=== PATIENT | male | born 1930 | race Caucasian/White ===

== ENCOUNTER 2016-11-27 19:21 | Inpatient (IN) | payer SELFPAY ==
[~2016-11-27] VITALS: Ht 177.8 cm; Wt 90.7 kg
[2016-11-27] MEDS ORDERED: CEFTRIAXONE 1 G in IV DEXTROSE 5% 50 ML IV ONE (19:45)
[2016-11-27] MEDS ORDERED: ATOR40TA PO (19:48)
[2016-11-27] MEDS ORDERED: METOPROLOL TARTRATE PO (19:51)
[2016-11-27] MEDS ORDERED: AMLO5TAB2 PO (19:51)
[2016-11-27] MEDS ORDERED: SOLI5TAB PO (19:53)
[2016-11-27] MEDS ORDERED: SITA50TA PO (19:53)
[2016-11-27] MEDS ORDERED: QUET25TA PO (19:54)
[2016-11-27] MEDS ORDERED: GLIP5TAB21 PO (19:55)
[2016-11-27 20:03] LABS: BASOPHILS % (AUTO) 0.2 % (0.0-2.0); EOSINOPHILS % (AUTO) 0.1 % (0.0-7.0); HEMATOCRIT 43.5 % (40.0-50.0); HEMOGLOBIN 14.9 g/dL (14.0-18.0); LYMPHOCYTES # (AUTO) 1.2 K/uL (0.8-4.8); LYMPHOCYTES % (AUTO) 6.5 % (20.5-51.5); MEAN CORPUSCULAR HEMOGLOBIN 27.5 uug (27.0-31.0); MEAN CORPUSCULAR HGB CONC 34 g/dL (32.0-37.0); MEAN CORPUSCULAR VOLUME 80.3 fL (82.0-92.0); MONOCYTES # (AUTO) 0.9 K/uL (0.1-1.30); MONOCYTES % (AUTO) 4.7 % (0.0-11.0); NEUTROPHILS # (AUTO) 17.1 K/uL (1.8-8.9); NEUTROPHILS % (AUTO) 88.5 % (38.5-71.5); PLATELET COUNT (AUTO) 153 K/uL (150-450); RED BLOOD CELL COUNT(AUTO) 5.41 MIL/uL (4.70-6.10); RED CELL DISTRIBUTION WIDTH 13.9 % (11.5-14.5); WHITE BLOOD COUNT (AUTO) 19.2 K/uL (4.0-11.2)
[2016-11-27 20:10] LABS: CALCIUM 9.4 mg/dL (8.5-10.1)
[2016-11-27 20:11] LABS: CREATININE 2.6 mg/dL (0.6-1.3)
[2016-11-27 20:18] LABS: TROPONIN I 0.018 ng/mL (0.00-0.056)
[2016-11-27 20:22] LABS: ALBUMIN 3.8 g/dL (3.4-5.0); BILIRUBIN,DIRECT 0.5 mg/dL (0.0-0.2); BILIRUBIN,TOTAL 2.2 mg/dL (0.2-1.0); TOTAL PROTEIN, SERUM 8.5 g/dL (6.4-8.2)
[2016-11-27] MEDS ORDERED: AZITHROMYCIN IV 500 MG in IV DEXTROSE 5% 250 ML IV ONE (20:30)
[2016-11-27 20:31] LABS: BAND % (MANUAL) 6 % (0-10); LYMPHOCYTES % (MANUAL) 8 % (20-40); MONOCYTES % (MANUAL) 5 % (2-10); NEUTROPHILS % (MANUAL) 81 % (42-75)
[2016-11-27 20:33] LABS: PLATELET ESTIMATE ADEQUATE
[2016-11-27 20:47] LABS: *OCCULT BLOOD STOOL NEGATIVE (NEGATIVE)
[2016-11-27 20:52] LABS: LACTIC ACID 1.7 mmol/L (0.4-2.0)
[2016-11-27] MEDS ORDERED: ENOXAPARIN SODIUM 80 MG/0.8 ML DISP.SYRIN SQ ONE ×2 (21:00→21:10)
[2016-11-27] MEDS ORDERED: CEFTRIAXONE 1 G VIAL ONE (21:10)
[2016-11-27] MEDS ORDERED: ASPI81TA31 PO (21:37)
[2016-11-27] MEDS ORDERED: AZITHROMYCIN 500 MG VIAL IV ONE (21:49)
--- NOTE | 2016-11-27 22:04 | NUR ---
PATIENT WENT DOWN FOR A VQ SCAN.
[2016-11-27 22:21] LABS: *BILIRUBIN,URIN NEGATIVE (NEGATIVE); *BLOOD, URINE 2+ (NEGATIVE); *CLARITY,URINE SLIGHTLY CLOUDY (CLEAR); *COLOR,URINE YELLOW (YELLOW); *KETONES,URINE TRACE (NEGATIVE); *PROTEIN,URINE 2+ (NEGATIVE); *UROBILINOGEN,URINE 0.2 E.U./dl (NORMAL); LEUKOCYTE ESTERASE ,URINE 1+ (NEGATIVE); PH,URINE 5.5 (5.0-8.0); UGLUCOSE NEGATIVE (NEGATIVE)
[2016-11-27 22:22] LABS: NITRITE, URINE POSITIVE (NEGATIVE)
[2016-11-27 22:32] LABS: BACTERIA,URINE MODERATE /HPF (NONE SEEN); WBC,URINE 50-80 /HPF (0-3)
[2016-11-27] MEDS ORDERED: DEXTROSE 50% 50 ML DISP.SYRIN IV PRN (22:45)
[2016-11-27] MEDS ORDERED: MORPHINE SULFATE 2 MG/1 ML DISP.SYRIN IV PRN (22:45)
[2016-11-27] MEDS: CEFTRIAXONE 1 G in IV DEXTROSE 5% 50 ML IV SCH (22:45)
[2016-11-27] MEDS ORDERED: ONDANSETRON 4 MG/2 ML VIAL IV PRN (22:45)
[2016-11-27] MEDS ORDERED: ACETAMINOPHEN 325 MG TABLET PO PRN (22:45)
[2016-11-27] MEDS: AZITHROMYCIN IV 250 MG in IV DEXTROSE 5% 250 ML IV SCH (22:45)
--- NOTE | 2016-11-27 22:52 | NUR ---
CALLED TO GIVE REPORT. NURSE WILL CALL BACK SOON.
[2016-11-28 01:20] VITALS: BP 110/56
[2016-11-28] MEDS: IV 1/2NS 1000 ML 1,000 ML IV PRN ×2 (02:13→16:02)
[2016-11-28 05:18] VITALS: BP 129/65
[2016-11-28] MEDS: BLOOD SUGAR DIAGNOSTIC 1 EACH STRIP VI SCH ×4 (06:34→21:18)
--- NOTE | 2016-11-28 07:10 | NUR ---
PATIENT RECEIVED IN ROOM RESTING WITH EYES CLOSED IN NO ACUTE DISTRESS. SR ON PIPE RECOVERY SPECIALIST. RESPIRATIONS EVEN AND UNLABORED. O2 ON 2L/NC. FALL PRECAUTIONS AND DVT PUMPS IN PLACE.
[2016-11-28] MEDS ORDERED: DOCUSATE SODIUM 250 MG CAPSULE PO SCH (07:45)
[2016-11-28] MEDS: INSULIN REGULAR, HUMAN 300 UNIT/3 ML VIAL SQ PRN ×3 (08:22→16:56)
[2016-11-28] MEDS: ASPIRIN 81 MG TAB.CHEW PO SCH (08:25)
[2016-11-28] MEDS: PANTOPRAZOLE SODIUM 40 MG VIAL IV SCH (08:25)
[2016-11-28] MEDS: glipiZIDE 5 MG TABLET PO SCH ×2 (08:25→16:54)
[2016-11-28] MEDS: SOLIFENACIN SUCCINATE 5 MG TABEC PO SCH (08:25)
[2016-11-28] MEDS: METOPROLOL TARTRATE 25 MG TABLET PO SCH ×2 (08:30→21:17)
[2016-11-28] MEDS: AMLODIPINE 5 MG TABLET PO SCH (08:30)
[2016-11-28] MEDS: SITAGLIPTIN PHOSPHATE 50 MG TABLET PO SCH (08:41)
[2016-11-28] MEDS ORDERED: METOPROLOL TARTRATE PO SCH (09:00)
[2016-11-28 09:17] LABS: ALBUMIN 3.2 g/dL (3.4-5.0); BILIRUBIN,TOTAL 1.8 mg/dL (0.2-1.0); MAGNESIUM 1.5 mg/dL (1.8-2.4); PHOSPHOROUS 2.9 mg/dL (2.5-4.9); POTASSIUM 3.5 mmol/L (3.5-5.1); TOTAL PROTEIN, SERUM 7.5 g/dL (6.4-8.2)
[2016-11-28 09:18] LABS: CREATININE 2.5 mg/dL (0.6-1.3)
[2016-11-28 09:36] LABS: THYROID STIMULATING HORMONE 1.497 mIU/mL (0.358-3.740)
[2016-11-28 09:55] LABS: BASOPHILS % (AUTO) 0.1 % (0.0-2.0); EOSINOPHILS # (AUTO) 0.1 K/uL (0.0-0.7); EOSINOPHILS % (AUTO) 0.6 % (0.0-7.0); HEMATOCRIT 39.6 % (40.0-50.0); HEMOGLOBIN 13.2 g/dL (14.0-18.0); LYMPHOCYTES # (AUTO) 1.5 K/uL (0.8-4.8); MEAN CORPUSCULAR HEMOGLOBIN 26.6 uug (27.0-31.0); MEAN CORPUSCULAR HGB CONC 33 g/dL (32.0-37.0); MEAN CORPUSCULAR VOLUME 80.1 fL (82.0-92.0); MONOCYTES # (AUTO) 1.1 K/uL (0.1-1.30); NEUTROPHILS # (AUTO) 12.4 K/uL (1.8-8.9); NEUTROPHILS % (AUTO) 82.3 % (38.5-71.5); PLATELET COUNT (AUTO) 118 K/uL (150-450); RED BLOOD CELL COUNT(AUTO) 4.95 MIL/uL (4.70-6.10); WHITE BLOOD COUNT (AUTO) 15.1 K/uL (4.0-11.2)
--- NOTE | 2016-11-28 10:50 | NUR ---
PATIENT PARTICIPATED WITH PT AND TOLERATED WELL.
[2016-11-28 11:24] LABS: BAND % (MANUAL) 7 % (0-10); LYMPHOCYTES % (MANUAL) 10 % (20-40); MONOCYTES % (MANUAL) 6 % (2-10); NEUTROPHILS % (MANUAL) 77 % (42-75); PLATELET ESTIMATE SLIGHT DECREASED
[2016-11-28 11:44] VITALS: BP 119/61
[2016-11-28 15:26] VITALS: BP 114/57
--- NOTE | 2016-11-28 18:40 | NUR ---
END OF SHIFT NOTE: PATIENT ALERT AND ORIENTED WNL. NO S/S OF DISTRESS OBSERVED. VSS. DENIED PAIN. NO C/O CHEST PAIN. SR ON OUTSIDE SALES MANAGER. RESPIRATIONS EVEN AND UNLABORED. IVF RUNNING. UP ON CHAIR FOR DINNER AND TOLERATED WELL. TURNED AND REPOSITIONED EVERY 2 HOURS AND PRN. HEELS ELEVATED ON PILLOWS. DVT PUMPS AND FALL PRECAUTIONS IN PLACE.
[2016-11-28 20:26] VITALS: BP 123/53
[2016-11-28] MEDS: DOCUSATE SODIUM 250 MG CAPSULE PO SCH (21:17)
[2016-11-28] MEDS: ATORVASTATIN 40 MG TABLET PO SCH (21:17)
[2016-11-28] MEDS: LACTOBACILLUS RHAMNOSUS GG 1 EACH CAPSULE PO SCH (21:17)
[2016-11-28] MEDS: CEFTRIAXONE 1 G in IV DEXTROSE 5% 50 ML IV SCH (22:39)
[2016-11-28] MEDS: AZITHROMYCIN IV 250 MG in IV DEXTROSE 5% 250 ML IV SCH (23:24)
[2016-11-29 00:22] VITALS: BP 122/67
[2016-11-29 04:36] VITALS: BP 121/68
[2016-11-29] MEDS: IV 1/2NS 1000 ML 1,000 ML IV PRN (06:18)
--- NOTE | 2016-11-29 07:33 | NUR ---
PATIENT RECEIVED IN ROOM RESTING IN BED, EASILY AWAKEN IN NO ACUTE DISTRESS. RESPIRATIONS EVEN AND UNLABORED. 02 ON 2L/NC. NO COUGH NOTED. IVF RUNNING. IV SITE INTACT AND PATENT. DVT PUMPS AND FALL PRECAUTIONS IN PLACE.
[2016-11-29] MEDS: BLOOD SUGAR DIAGNOSTIC 1 EACH STRIP VI SCH ×4 (08:08→20:24)
[2016-11-29] MEDS: glipiZIDE 5 MG TABLET PO SCH ×2 (08:11→17:24)
[2016-11-29] MEDS: INSULIN REGULAR, HUMAN 300 UNIT/3 ML VIAL SQ PRN ×4 (08:12→20:26)
[2016-11-29] MEDS: SOLIFENACIN SUCCINATE 5 MG TABEC PO SCH (08:14)
[2016-11-29] MEDS: PANTOPRAZOLE SODIUM 40 MG VIAL IV SCH (08:14)
[2016-11-29] MEDS: ASPIRIN 81 MG TAB.CHEW PO SCH (08:14)
[2016-11-29] MEDS: LACTOBACILLUS RHAMNOSUS GG 1 EACH CAPSULE PO SCH ×2 (08:15→20:23)
[2016-11-29] MEDS: SITAGLIPTIN PHOSPHATE 50 MG TABLET PO SCH (08:15)
[2016-11-29] MEDS: AMLODIPINE 5 MG TABLET PO SCH (08:20)
[2016-11-29] MEDS: METOPROLOL TARTRATE 25 MG TABLET PO SCH ×2 (08:21→20:24)
[2016-11-29 11:37] LABS: CALCIUM 8.4 mg/dL (8.5-10.1); POTASSIUM 3.6 mmol/L (3.5-5.1)
[2016-11-29 11:40] LABS: CREATININE 2.4 mg/dL (0.6-1.3)
[2016-11-29 11:52] VITALS: BP 110/67
[2016-11-29 11:57] LABS: HEMOGLOBIN 12.6 g/dL (14.0-18.0); LYMPHOCYTES % (AUTO) 11.3 % (20.5-51.5); MEAN CORPUSCULAR HEMOGLOBIN 26.4 uug (27.0-31.0); MEAN CORPUSCULAR HGB CONC 32 g/dL (32.0-37.0); MEAN CORPUSCULAR VOLUME 81.6 fL (82.0-92.0); MONOCYTES % (AUTO) 8.3 % (0.0-11.0); NEUTROPHILS % (AUTO) 79.4 % (38.5-71.5); RED BLOOD CELL COUNT(AUTO) 4.78 MIL/uL (4.70-6.10); RED CELL DISTRIBUTION WIDTH 14.9 % (11.5-14.5)
[2016-11-29 11:58] LABS: EOSINOPHILS # (AUTO) 0.1 K/uL (0.0-0.7); LYMPHOCYTES # (AUTO) 0.8 K/uL (0.8-4.8); MONOCYTES # (AUTO) 0.6 K/uL (0.1-1.30); NEUTROPHILS # (AUTO) 5.6 K/uL (1.8-8.9)
[2016-11-29 12:53] LABS: PLATELET COUNT (AUTO) 142 K/uL (150-450)
[2016-11-29 16:05] VITALS: BP 129/66
[2016-11-29] MEDS ORDERED: SULFAMETH/TRIMETH 800/160 MG TABLET PO SCH (16:15)
[2016-11-29] MEDS: SULFAMETH/TRIMETH 800/160 MG TABLET PO SCH (17:24)
--- NOTE | 2016-11-29 19:30 | NUR ---
ATTEMPTED TO CALL FAMILY MEMBER LISTED ON FACE SHEET TO INFORM ABOUT POSSIBLE DISCHARGE BUT UNABLE TO CONTACT, NUMBER NOT AVAILABLE. PATIENT IN BED, CALM AND COMFORTABLE. NO ACUTE DISTRESS. NEEDS ATTENDED. CALL LIGHT WITHIN REACH. WILL CONTINUE TO MONITOR
[2016-11-29] MEDS: DOCUSATE SODIUM 250 MG CAPSULE PO SCH (20:23)
[2016-11-29] MEDS: ATORVASTATIN 40 MG TABLET PO SCH (20:24)
[2016-11-29 21:42] VITALS: BP 118/58
[2016-11-29] MEDS: CEFTRIAXONE 1 G in IV DEXTROSE 5% 50 ML IV SCH (21:45)
[2016-11-29] MEDS: AZITHROMYCIN IV 250 MG in IV DEXTROSE 5% 250 ML IV SCH (22:32)
[2016-11-30 05:19] VITALS: BP 123/60
--- NOTE | 2016-11-30 06:19 | NUR ---
RESTING COMFORTABLY DURING THE SHIFT. NO ACUTE DISTRESS NOTED. ALL DUE MEDS GIVEN ORDERED. KEPT COMFORTABLE AT ALL TIMES. KEPT CLEAN AND DRY. CALL LIGHT WITHIN REACH
[2016-11-30] MEDS: BLOOD SUGAR DIAGNOSTIC 1 EACH STRIP VI SCH ×3 (06:34→16:53)
[2016-11-30] MEDS ORDERED: PANTOPRAZOLE SODIUM 40 MG TABLET.DR PO SCH (07:00)
--- NOTE | 2016-11-30 07:00 | NUR ---
Pt is laying in bed comfortably. No s/s of respiratory distress noted. No pain noted. Iv intact/patent. All safety needs are met. Will continue to monitor.
[2016-11-30] MEDS: SOLIFENACIN SUCCINATE 5 MG TABEC PO SCH (08:32)
[2016-11-30] MEDS: glipiZIDE 5 MG TABLET PO SCH ×2 (08:32→16:48)
[2016-11-30] MEDS: ASPIRIN 81 MG TAB.CHEW PO SCH (08:32)
[2016-11-30] MEDS: SULFAMETH/TRIMETH 800/160 MG TABLET PO SCH (08:32)
[2016-11-30] MEDS: LACTOBACILLUS RHAMNOSUS GG 1 EACH CAPSULE PO SCH (08:32)
[2016-11-30] MEDS: SITAGLIPTIN PHOSPHATE 50 MG TABLET PO SCH (08:32)
[2016-11-30] MEDS: AMLODIPINE 5 MG TABLET PO SCH (08:41)
[2016-11-30] MEDS: METOPROLOL TARTRATE 25 MG TABLET PO SCH (08:42)
[2016-11-30 12:02] VITALS: BP 122/96
[2016-11-30] MEDS: INSULIN REGULAR, HUMAN 300 UNIT/3 ML VIAL SQ PRN ×2 (12:09→17:58)
[2016-11-30 16:04] VITALS: BP 115/67
[2016-11-30] MEDS ORDERED: FERR325T28 PO (18:48)
[2016-11-30] MEDS ORDERED: LACT1CAP57 PO (18:48)
[2016-11-30] MEDS ORDERED: SITA50TA PO (18:48)
[2016-11-30] MEDS ORDERED: SULF1TAB3 PO (18:48)
[2016-11-30] MEDS ORDERED: AZIT250T6 PO (18:48)
--- NOTE | 2016-11-30 19:16 | NUR ---
PT IS DICHARGED HOME WITH FAMILY FRIEND (SEE D/C NURSING NOTES FOR DETAIL). NO S/S OF RESPIRATORY DISTRESS. PT IS ALERT AND ORIENTED x3, NO PAIN NOTED. PT HAD 2 BOWEL MOVEMENTS. IV IS REMOVED. ALL SAFETY NEEDS ARE MET
[2016-11-30] MEDS ORDERED: AZITHROMYCIN 250 MG TABLET PO SCH (21:00)
== END 2016-11-30 19:05 | disposition home or self-care (01) | DRG 871 ==
LOC: ER 19:27 → TELE 23:54 → MED 11-29 18:29
PROVIDERS: ADMIT Internal Medicine; ATTEND Internal Medicine
DX: A41.9 Sepsis, unspecified organism (principal); J18.9 Pneumonia, unspecified organism; N17.0 Acute kidney failure with tubular necrosis; N39.0 Urinary tract infection, site not specified; D68.59 Other primary thrombophilia; R65.20 Severe sepsis without septic shock; B96.20 Unspecified Escherichia coli [E. coli] as the cause of diseases classified elsewhere; E11.22 Type 2 diabetes mellitus with diabetic chronic kidney disease; N18.9 Chronic kidney disease, unspecified; Z79.84 Long term (current) use of oral hypoglycemic drugs; E78.5 Hyperlipidemia, unspecified; F03.90 Unspecified dementia, unspecified severity, without behavioral disturbance, psychotic disturbance, mood disturbance, and anxiety; Z87.440 Personal history of urinary (tract) infections; Z79.899 Other long term (current) drug therapy; E83.42 Hypomagnesemia; E11.65 Type 2 diabetes mellitus with hyperglycemia; Z74.09 Other reduced mobility; D69.6 Thrombocytopenia, unspecified; D50.9 Iron deficiency anemia, unspecified; E80.4 Gilbert syndrome; I13.10 Hypertensive heart and chronic kidney disease without heart failure, with stage 1 through stage 4 chronic kidney disease, or unspecified chronic kidney disease
CPT/HCPCS: 36415; 70030-TC; 71010; 78579; 83550; 83605; 83735; 84100; 84443; 85025; 87040; 87077; 87086; 87400; 93005; 93307; 97001; 97110; 97116; A4663; A9540; A9567; C9113; J0456; J0696; J1650; J1815; J3490; J7060